=== PATIENT | male | born 1990 | race Caucasian/White ===

== ENCOUNTER 2017-04-24 10:06 | Emergency (ER) | payer MEDICAID ==
[2017-04-24 10:16] VITALS: BP 137/88; PULSE 103; RESP 18; TEMP 98.6; O2SAT 93
[2017-04-24] MEDS ORDERED: traMADol 50 MG TAB PO ONE (12:14)
--- NOTE | 2017-04-24 12:32 | EDPHY ---
H & P Smoking Status: Current every day smoker Time Seen by Provider: 04/24/17 12:29 HPI/ROS: HPI: Mr. Zeng is a 27 yrs, male who presents with Chief Complaint: Right lower leg injury Location: Right posterior knee/right lower leg Quality: Pain Duration: 2 days Signs and Symptoms: No radiation, no weakness, no tingling, no numbness, positive swelling Timing: Sudden, constant, worse with use Severity: 8/10 Context: Patient was skateboarding and fell directly onto his right lower leg 2 days ago. Reports increased pain with ambulation. Pain is located in the posterior aspect of his right knee extending into the superior portion of his right lateral lower leg. As noted mild swelling over the last 1 day. Still able to walk Modifying Factors: Has not tried any over [id number] medications Comment: ROS: Eyes: No blurred vision Respiratory: No shortness of breath, no cough Cardiovascular: No chest pain Gastrointestinal: No nausea, no vomiting no diarrhea Genitourinary: No dysuria Extremities: No myalgias Neurologic: No weakness, no numbness Skin: No rashes Hematologic: No bruising, no bleeding MEDICAL/SURGICAL HISTORY: Generally healthy. Denies any surgical history. (Lena Jc) Social History: Single. Smokes marijuana. (Lena Jc) Physical Exam: CONSTITUTIONAL: Under adult well-appearing white male, awake and alert, no obvious distress Cardiovascular: Normal S1/S2, regular rate, regular rhythm, without murmur rub or gallop. PULMONARY/CHEST: Symmetrical and nontender. Clear to auscultation bilaterally Good air movement. No accessory muscle usage. ABDOMEN: Soft, nondistended, nontender, no rebound, no guarding, no peritoneal signs, no masses or organomegaly. No CVAT. EXTREMITIES: 2/2 pulses, right posterior knee and right lateral superior portion of lower leg with mild erythema and swelling and mild tenderness to palpation. No fluctuance appreciated. No calf tenderness. Negative Homans sign. Right knee has flexion to 120 of full extension stable to varus and valgus stress. no deformities, no clubbing, no cyanosis or edema. NEUROLOGICAL: no focal neuro deficits. GCS 15. Light touch sensation intact SKIN: Warm and dry, no rash. Good capillary refill. (Lena Jc) Constitutional: Initial Vital Signs Temperature (C) 37 C 04/24/17 10:13 Heart Rate 103 H 04/24/17 10:13 Respiratory Rate 18 04/24/17 10:13 Blood Pressure 137/88 H 04/24/17 10:13 O2 Sat (%) 93 04/24/17 10:13 O2 Delivery Mode Room Air Allergies/Adverse Reactions: No Known Allergies Allergy (Unverified 04/24/17 10:12) Home Medications: Medication Instructions Recorded Naproxen [Naprosyn] 500 mg PO BID PRN #20 tablet 04/24/17 Medical Decision Making ED Course/Re-evaluation: X-ray and oral medication given Wells criteria is low for DVT Given Ultram with adequate pain relief X-ray reviewed by myself shows no degenerative changes, fracture, dislocation, large effusion No signs of neurovascular compromise, fracture, dislocation, ligamentous injury Placed in knee immobilizer, rice, weight-bearing as tolerated (Lena Jc) Differential Diagnosis: Differential diagnosis includes but is not limited to hematoma, contusion, sprain, fracture, dislocation. (Lena Jc) Other Provider: The patient wasevaluatedand managed by themidlevel provider. Idiscussed the patient's presentation and course with thephysicianassistantor nurse practitionerand agree with theevaluation. My co-signature indicates that I have reviewed this chart and I agree with the findings and plan of care as documented. I am the secondary supervisingphysician. (Etelvina Vargas) - Data Points Medications Given: Discontinued Medications Tramadol HCl (Ultram) 50 mg PO EDNOW ONE Stop: 04/24/17 12:15 Last Admin: 04/24/17 12:28 Dose: 50 mg Departure - Departure Disposition: Home, Routine, Self-Care Clinical Impression: Contusion of leg, right, Sprain of right knee Condition: Good Instructions: Sprain (ED), Knee Pain (ED) Referrals: NONE *PRIMARY CARE P,. [Primary Care Provider] - As per Instructions Juan Gupta MD [Medical Doctor] - 5-7 days, if not improved Prescriptions: Naproxen [Naprosyn] 500 mg PO BID PRN #20 tablet PRN Reason: Pain, Moderate
== END 2017-04-24 13:31 | disposition home or self-care (01) ==
DX: S83.401A Sprain of unspecified collateral ligament of right knee, initial encounter (principal); S80.11XA Contusion of right lower leg, initial encounter; F17.200 Nicotine dependence, unspecified, uncomplicated; V00.131A Fall from skateboard, initial encounter; Y93.51 Activity, roller skating (inline) and skateboarding
CPT/HCPCS: L1830